=== PATIENT | male | born 1955 | race Caucasian/White ===

== ENCOUNTER → 2017-03-07 | Outpatient (CLI) | payer MEDICARE, MEDICAID ==
[~2017-03-07] MED LIST: ABILIFY2 MG PO; ALBUTEROL2.5 MG/3 M INH; ALDACTONE25 MG PO; AMITIZA24 MCG PO; AVEENO 1% CREAM28 GM TOP; BACTROBAN 2% OI22 GM TOP; BETADINE TOP; CETAPHIL226 GM TOP; CLOBETASOL EMOL30 GM TOP; DESYREL100 MG PO; DULCOLAX10 MG R; HYDROCORT TOP; KLONOPIN0.5 M1 PO; LASIX40 M1 PO; LEVAQUIN750 MG PO; LEXAPRO10 MG PO; LUVOX50 MG PO; MILK OF MA400 MG/5 M PO; MIRALAX17 GM PO; MUCINEX600 MG PO; NEOSPORIN1 PKT TOP; ROBITUSSIN100 MG/5 M PO; SEA SOFT45 ML NOSE; SEROQUEL100 MG PO; SEROQUEL50 MG PO; SPECTAZOLE15 GM TOP; TAB A VITE1 EAC1 PO; TEARGEN1 BOT OPHTH; TRIAMCINOLONE454 GM TOP; TYLENOL EXTRA500 MG PO; ULTRAM50 MG PO; VASELINE TOP; VOLTAREN 1% GE100 GM TOP; ZANTAC150 MG PO; ZOFRAN8 M1 PO; ZYRTEC10 MG PO
[2017-03-07 08:39] LABS: BASOPHIL # 0.1 K/uL (0.0-0.2); BASOPHIL % 0.4 %; EOSINOPHIL # 0.3 K/uL (0.0-0.5); EOSINOPHIL % 2.3 %; HEMATOCRIT 35.6 % (37.0-53.0); HEMOGLOBIN 11.8 g/dL (11.0-16.0); IMMATURE GRANULOCYTE % 0.3 %; LYMPHOCYTE # 4.6 K/uL (0.8-4.0); LYMPHOCYTE % 39.8 %; MCH 33.1 pg (27.0-34.0); MCHC 33.1 gm/dL (32.0-36.5); MCV 99.7 fl (83.0-98.0); MONOCYTE # 0.8 K/uL (0.0-1.0); MONOCYTE % 6.8 %; MPV 9.4 fl (9.4-12.4); NEUTROPHIL # (ANC) 5.8 K/uL (1.4-9.0); NEUTROPHIL % 50.4 %; NRBC % 0 /100WBC (0-0.00); RBC 3.57 M/uL (3.50-5.50); RDW-CV 12.6 % (11.9-14.6); WBC 11.6 K/uL (4.0-11.0)
[2017-03-07 08:40] LABS: PLATELET COUNT 288 K/uL (150-450)
[2017-03-07 09:08] LABS: ALBUMIN 4.2 gm/dL (3.5-5.0); ANION GAP 14.1 (10.0-19.0); CALCIUM 9.3 mg/dL (8.5-10.5); CREATININE 1.7 mg/dL (0.6-1.3); POTASSIUM 5.1 mMol/L (3.7-5.1); TOTAL PROTEIN 8.1 g/dL (6.0-8.4)
[2017-03-07 09:28] LABS: TOTAL BILIRUBIN 0.4 mg/dL (0.0-1.5)
== END ==
LOC: LBETH 03-06 12:24
PROVIDERS: Psychiatry & Neurology Child & Adolescent Psychiatry
DX: Z79.899 Other long term (current) drug therapy (principal); Z12.5 Encounter for screening for malignant neoplasm of prostate

== ENCOUNTER → 2017-04-04 | Outpatient (CLI) | payer MEDICARE, MEDICAID | LOC: LBETH 04-02 12:50 | DX: Z79.899 Other long term (current) drug therapy (principal); Z12.5 Encounter for screening for malignant neoplasm of prostate ==